=== PATIENT | female | born 1985 | race Caucasian/White ===

== ENCOUNTER 2020-12-22 16:26 | Emergency (ER) | payer OTHER ==
[~2020-12-22] VITALS: Ht 154.9 cm; Wt 68.0 kg
[~2020-12-22 16:26] MED LIST: KEFLEX500 MG PO; LEVOTHROID100 MC1; MOTION RELIEF25 MG PO; ORTHO TRI-CYCL1 EACH; PRENATAL
[2020-12-22] MEDS ORDERED: TESSALON PERLE100 MG PO (17:15)
[2020-12-22] MEDS ORDERED: APAP W/CODEINE1 TA2 PO (17:15)
[2020-12-22] MEDS ORDERED: PROMETHAZINE V120 ML PO (17:15)
[2020-12-22 18:04] VITALS: BP 137/98
== END 2020-12-22 18:05 | disposition home or self-care (01) ==
LOC: M.ERS 16:26
DX: U07.1 COVID-19 (principal)